=== PATIENT | female | born 1950 ===

== ENCOUNTER 2018-03-23 10:08 | Outpatient (CLI) | payer OTHER ==
[~2018-03-23] VITALS: Ht 152.4 cm; Wt 56.7 kg
== END 2018-03-23 10:25 | disposition home or self-care (01) ==
LOC: OFIC 805 10:08
DX: H90.3 Sensorineural hearing loss, bilateral (principal); H60.593 Other noninfective acute otitis externa, bilateral; H61.23 Impacted cerumen, bilateral

== ENCOUNTER 2018-03-30 10:36 | Outpatient (CLI) | payer OTHER ==
[~2018-03-30] VITALS: Ht 152.4 cm; Wt 56.7 kg
== END 2018-03-30 11:00 | disposition home or self-care (01) ==
LOC: OFIC 805 10:36
DX: H60.8X3 Other otitis externa, bilateral (principal); H90.3 Sensorineural hearing loss, bilateral; H61.23 Impacted cerumen, bilateral

== ENCOUNTER 2019-05-31 11:47 | Outpatient (CLI) | payer OTHER ==
[~2019-05-31] VITALS: Ht 152.4 cm; Wt 56.7 kg
== END 2019-05-31 12:10 | disposition home or self-care (01) ==
LOC: OFIC 805 11:47
DX: H60.8X3 Other otitis externa, bilateral (principal); H61.23 Impacted cerumen, bilateral